=== PATIENT | male | born 1990 | race Caucasian/White ===

== ENCOUNTER 2024-10-30 08:04 | Emergency (ER) | payer OTHER, SELFPAY ==
[2024-10-30 08:05] VITALS: BP 149/99; PULSE 77; RESP 16; TEMP 36.9; O2SAT 100; BMI 37.6
--- NOTE | 2024-10-30 08:44 | VDLE_ITS ---
Reason For Study Reason For Study: RLE PAin RIGHT LEFT GSV is normal. CFV is compressible, spontaneous, phasic, competent, CFV is compressible, spontaneous, phasic, competent and demonstrates normal augmentation. and demonstrates normal augmentation. FV is compressible, spontaneous, phasic, competent and demonstrates normal augmentation. POP V is compressible, spontaneous, phasic, competent and demonstrates normal augmentation. T/P Trunk is compressible. PTV is compressible. RT PerV is compressible. Rt Anterior Medial Knee varicose veins appear Dilated and NONCOMPRESSIBLE with hyperechoic intraluminal echoes noted. Finding is consistent with ACUTE SVT. Procedure This is a venous duplex using B-mode, color flow and spectral Doppler. Exam performed portable in ED. The exam was diagnostic. A preliminary report was called and/or faxed to Dr. Hamlin. VL/Venous Duplex US, Unilateral Interpretation Summary Deep veins of the right lower extremity are patent and compressible segmentally . There is no evidence of right lower extremity deep vein thrombosis. Valvular competence appears intact within the p roximal deep venous system on the right . The right great saphenous vein appears patent and compressible segmentally. Acu te superficial thrombophlebitis is noted involving superficial varicosities near the right medial and anterior knee. The left common femoral vein is patent and compressible . Ordering Physician: Toño Hamlin Referring Physician: N/A Performed By: Michele Bay RVT
--- NOTE | 2024-10-30 08:44 | RAD_ITS ---
PROCEDURE: KNEE 4 OR MORE VIEWS 10/30/2024 REASON FOR EXAM: PAIN TECHNIQUE: Four (4) view(s) of the right knee COMPARISON: No relevant prior. FINDINGS: Bones: No fractures or other osseous abnormalities. Joints: No subluxations or dislocations. Soft tissues: Unremarkable. RAD/Knee 4 or More Views IMPRESSION: NO EFFUSION ACUTE FRACTURE OR DISLOCATION. Reading Location: [place] [id number]
--- NOTE | 2024-10-30 08:54 | EX.ED.DYSGE1 ---
HPI History of Present Illness Chief Complaint: Lower Extremity Injury Narrative Narrative: Chief complaint and HPI: Right proximal tibia/fib pain. 34-year-old male with no significant past medical history presents for evaluation of right proximal tibia/fib pain. The area is just inferior to the knee. Patient states he noticed it became more painful and swollen this week. Denies any injury or trauma that he knows of. Does have ecchymosis in the area. Went to urgent care prior to arrival who sent him to the emergency department. Patient has not taken anything for the pain. Denies any weakness, numbness/tingling. No history of blood clots. Review of systems: See HPI Medications: As listed on the chart Allergies: As listed on the chart PFSH: Per chart Vital signs: As listed on the chart. Reviewed. Physical exam: Gen: A&O x3, NAD Head: Normocephalic, atraumatic Eyes: No sclera icterus, conjunctiva clear ENT: Moist mucous membranes CV: Regular rate Resp: Nonlabored respiration Musc: Full ROM, no deformity, mild tenderness to palpation of the inferior knee/proximal tibia/fib-mild swelling with ecchymosis in the area, no erythema/warmth/crepitus, compartments soft, negative Homans' sign, DP/PT pulses +2 bilateral, good capillary refill, sensation intact Skin: Warm, dry Neuro: Alert, oriented, grossly intact Psych: Cooperative, appropriate mood and affect PFS PFS Medical History no medical history Home Medications ?Medication ?Instructions ?Recorded ?Last Taken ?Type aspirin 325 mg tablet 325 mg PO DAILY 14 days #14 tabs 10/30/24 Unknown Rx Allergy/AdvReac Type Severity Reaction Status Date / Time No Known Allergies Allergy Verified 10/30/24 08:05 Family History no significant family his Social History Smoking Status: Never smoker EXAM Physical Exam Const Vital Signs: 10/30/24 08:05 Temperature 98.4 F Temperature Source Oral Pulse Rate 77 Respiratory Rate 16 Blood Pressure 149/99 H Blood Pressure Mean 115 Pulse Ox 100 Oxygen Delivery Method Room Air MDM MDM MDM Narrative Medical decision making narrative: 34-year-old male with no significant past medical history presents for evaluation of right proximal tibia/fib pain. Associated symptom is ecchymosis and mild swelling. Denies any injury or trauma that he knows of. No history of blood clots. Differential diagnosis includes but is not limited to contusion, fracture, DVT. Patient declined any pain medicine. X-ray of the knee will be obtained along with venous duplex ultrasound. X-ray of the right knee was preserved. Interpreted by me, ED physician. No fracture or dislocation. Radiology in agreement. Venous duplex ultrasound shows right anterior medial vein varicose veins that are consistent with acute superficial venous thrombosis. This correlates with patient's pain and mild swelling is. Will place him on a daily aspirin. First dose given here. Tylenol as needed for pain. Will give a repeat venous duplex ultrasound in 1 week to make sure that this is resolving and not propagating. Follow-up with PCP. Return precautions explained. He confirmed understand the plan. Patient stable to discharge home. Impression: 1. Superficial venous thrombosis of right anterior medial varicose veins Radiography Diagnostic Testing: Clinical Impression(s) from Imaging Studies Knee X-Ray 10/30/24 08:44 IMPRESSION: NO EFFUSION ACUTE FRACTURE OR DISLOCATION. Reading Location: [place] [address] Discharge Plan Triage Chief Complaint: Lower Extremity Injury ED Provider: Toño Hamlin Dx/Rx/DC Orders Clinical Impression: Acute superficial venous thrombosis of right lower extremity Instructions: Aspirin Prescriptions: New aspirin 325 mg tablet 325 mg PO DAILY 14 Days Qty: 14 0RF Other Ambulatory Orders: Venous Duplex US, Unilateral (Stat) Timeframe: 1 Week Facility: [facility] - Location: [facility] Ordered By: Dr. Toño Hamlin Primary Care Provider: Care Physician,No Primary Referrals: Bladimir Velasco MD [Med Staff - Active Staff] - 3-5 Days Activity Restrictions/Additional Instructions: Your ultrasound study shows right anterior medial vein varicose veins that are consistent with an acute superficial venous thrombosis. Will place you on daily aspirin. Tylenol as needed for pain. Follow-up with your primary care physician if you do not have 1 follow-up with the 1 provided above. Get repeat venous duplex ultrasound next week to see if this is improving. You received your first dose of aspirin here in the emergency department. Start your aspirin tomorrow. Print Language: Swedish Disposition Disposition: Home, Self Care
[2024-10-30] MEDS: Aspirin 81 MG TAB.CHEW 324 MG PO (10:29)
[2024-10-30 10:39] VITALS: BP 146/86; PULSE 66; RESP 16; TEMP 37.1; O2SAT 98
== END 2024-10-30 10:39 | disposition home or self-care (01) ==
PROVIDERS: Emergency Provider Surgery; Visit Provider Surgery
DX: I82.811 Embolism and thrombosis of superficial veins of right lower extremity (principal)
CPT/HCPCS: 73564; 93971; 99282; A4216

== ENCOUNTER → 2024-11-06 | Outpatient (CLI) | payer SELFPAY, OTHER ==
--- NOTE | 2024-11-06 09:53 | VDLE_ITS ---
Reason For Study Reason For Study: Pain RIGHT LEFT GSV is normal. CFV is compressible, spontaneous, phasic, competent, CFV is compressible, spontaneous, phasic, competent and demonstrates normal augmentation. and demonstrates normal augmentation. FV is compressible, spontaneous, phasic, competent and demonstrates normal augmentation. POP V is compressible, spontaneous, phasic, competent and demonstrates normal augmentation. T/P Trunk is compressible. PTV is compressible. RT PerV is compressible. Rt Anterior Knee varicose veins appear dilated and NONCOMPRESSIBLE with hyperechoic intraluminal echoes noted. Finding is consistent with ACUTE SVT. Procedure This is a venous duplex using B-mode, color flow and spectral Doppler. Exam performed in department. VL/Venous Duplex US, Unilateral Interpretation Summary Acute superficial vein thrombosis noted in right lower extremity varicosities. Deep veins of the right lower extremity are patent and compressible segmentally . There is no evidence of right lower extremity deep vein thrombosis. The right great saphenous vein appears patent a nd compressible segmentally. Ordering Physician: Toño Hamlin Performed By: Beverly Torres RVT
== END | disposition home or self-care (01) ==
LOC: CVS 09:53
PROVIDERS: Referring Provider Surgery; Visit Provider Surgery
DX: M79.604 Pain in right leg (principal)
CPT/HCPCS: 93971